=== PATIENT | female | born 1965 | race Asian ===

== ENCOUNTER 2018-08-14 10:52 | Emergency (ER) | payer OTHER, MEDICAID, SELFPAY ==
[2018-08-14 11:04] VITALS: BP 138/65; PULSE 55; RESP 14; TEMP 36.4; O2SAT 100; BMI 26.6
[2018-08-14] MEDS: METOCLOPRAMIDE 10 MG/2 ML INJ 5 MG IV (12:47)
[2018-08-14] MEDS: diphenhydrAMINE 50 MG/ML VIAL 25 MG IV (12:49)
[2018-08-14] MEDS: SODIUM CHLORIDE 0.9% 1,000 ML 1000 ML IV (12:49)
[2018-08-14] MEDS: KETOROLAC 60 MG/2 ML VIAL 30 MG IV (12:52)
[2018-08-14 12:55] VITALS: BP 143/68; PULSE 58; RESP 17; O2SAT 100
[2018-08-14 14:15] VITALS: BP 127/63; PULSE 60; RESP 18; O2SAT 99
--- NOTE | 2018-08-14 15:38 | ED_ITS ---
HPI - Nausea/Vomiting/Diarrhea <MADAY Hines - Last Filed: 08/14/18 15:38> General Chief complaint: Nausea/Vomiting/Diarrhea Stated complaint: Throwing up,headache Time Seen by Provider: 08/14/18 12:01 Source: patient and family Mode of arrival: ambulatory Limitations: no limitations History of Present Illness HPI Narrative: The patient is a 53-year-old female nonsmoker who presents with a chief complaint of a headache since yesterday. She states that she had recent cataract surgery, and was seen by her on-call surgeon this morning at [facility] in [place]. They state that her eye was okay, but did not help her headache. They have called in a prescription for steroids for her eye, but the patient has not picked them up. She states that her headache started last night, so bad at times that she is nauseous. Denies any vomiting or fever. No visual changes weakness incontinence or neurological changes. She has not taken anything for the headache. She states she has not taken Tylenol or Motrin. She denies any confusion. is with her and is in accordance. She had no thunderclap sensation. Related Data Allergies Allergy/AdvReac Type Severity Reaction Status Date / Time No Known Drug Allergies Allergy Verified 08/14/18 12:44 Review of Systems <MADAY Hines - Last Filed: 08/14/18 15:38> Review of Systems GENERAL: Denies chills, fatigue, malaise, fever, sweats. HEENT: See HPI RESPIRATORY: Denies dyspnea, cough, wheezing, hemoptysis, sputum. CARDIOVASCULAR: Denies chest pain, palpitations, orthopnea, edema, GASTROINTESTINAL: Denies nausea, vomiting, abdominal pain, diarrhea, constipation, melena. : Denies dysuria, frequency, incontinence, hematuria, urinary retention. MUSCULOSKELETAL: denies weakness, joint pain, or bony pain SKIN: Denies rash, skin lesions, or other NEUROLOGIC: See HPI PSYCHIATRIC: No concerning psychosocial issues. 12 point review of systems is negative except for those stated above PFSH <MADAY Hines - Last Filed: 08/14/18 15:38> Surgical History (Updated 08/14/18 @ 15:36 by MADAY Hines) History of cataract surgery (Acute) Social History Smoking Status: Never smoker Social History Smoking Status: Never smoker Exam <MADAY Hines - Last Filed: 08/14/18 15:38> Narrative Exam Narrative: GENERAL: This is a well-nourished, well-developed patient, no acute distress HEAD: Atraumatic. Normocephalic. No temporal or scalp tenderness. EYES: Pupils equal round and reactive. Extraocular motions intact. No scleral icterus. No injection or drainage. ENT: Nose without bleeding, purulent drainage or septal hematoma. Throat without erythema, tonsillar hypertrophy or exudate. Uvula midline. Airway patent. NECK: Trachea midline. No JVD or lymphadenopathy. Supple, nontender, no meningeal signs. CARDIOVASCULAR: Regular rate and rhythm without murmurs, gallops, or rubs. RESPIRATORY: Clear to auscultation. Breath sounds equal bilaterally. No wheezes, rales, or rhonchi. GASTROINTESTINAL: Abdomen soft, non-tender, nondistended. No hepato- splenomegaly, or palpable masses. No guarding. EXTREMITIES: No clubbing, cyanosis, or edema. No joint tenderness, effusion, or edema noted. BACK: Nontender without deformity or crepitance. No flank tenderness. NEURO: AOx3. Strength is equal upper and lower extremities bilaterally. Alvarez heel test intact. Using all extremities. No gross cranial nerve deficit. SKIN: No rash or erythema. Initial Vital Signs Initial Vital Signs: Vital Signs Temperature 97.6 F 08/14/18 11:04 Pulse Rate 55 L 08/14/18 11:04 Respiratory Rate 14 08/14/18 11:04 Blood Pressure 138/65 08/14/18 11:04 Pulse Oximetry 100 08/14/18 11:04 <Shanta Arellano DO - Last Filed: 08/14/18 19:05> Initial Vital Signs Initial Vital Signs: Vital Signs Temperature 97.6 F 08/14/18 11:04 Pulse Rate 55 L 08/14/18 11:04 Respiratory Rate 14 08/14/18 11:04 Blood Pressure 138/65 08/14/18 11:04 Pulse Oximetry 100 08/14/18 11:04 Course <Shanta Roth, INFORMATION TECHNOLOGY SECURITY ANALYST-BC - Last Filed: 08/14/18 15:38> Orders Ordered: Discontinued Medications Diphenhydramine HCl (Benadryl) 25 mg IV NOW ONE Stop: 08/14/18 12:14 Last Admin: 08/14/18 12:49 Dose: 25 mg Sodium Chloride (Normal Saline 0.9%) 1,000 mls @ 1,000 mls/hr IV BOLUS ONE Stop: 08/14/18 13:12 Last Infusion: 08/14/18 14:16 Dose: 0 mls/hr Admin: 08/14/18 12:49 Dose: 1,000 mls/hr Ketorolac Tromethamine (Toradol) 30 mg IV NOW ONE Stop: 08/14/18 12:14 Last Admin: 08/14/18 12:52 Dose: 30 mg Metoclopramide HCl (Reglan) 5 mg IV NOW ONE Stop: 08/14/18 12:14 Last Admin: 08/14/18 12:47 Dose: 5 mg Vital Signs - 8 hr 08/14/18 12:55 08/14/18 14:15 Pulse Rate 58 L 60 Respiratory Rate 17 18 Blood Pressure [Right Arm] 143/68 H 127/63 Pulse Oximetry 100 99 <Shanta Arellano DO - Last Filed: 08/14/18 19:05> Orders Ordered: Discontinued Medications Diphenhydramine HCl (Benadryl) 25 mg IV NOW ONE Stop: 08/14/18 12:14 Last Admin: 08/14/18 12:49 Dose: 25 mg Sodium Chloride (Normal Saline 0.9%) 1,000 mls @ 1,000 mls/hr IV BOLUS ONE Stop: 08/14/18 13:12 Last Infusion: 08/14/18 14:16 Dose: 0 mls/hr Admin: 08/14/18 12:49 Dose: 1,000 mls/hr Ketorolac Tromethamine (Toradol) 30 mg IV NOW ONE Stop: 08/14/18 12:14 Last Admin: 08/14/18 12:52 Dose: 30 mg Metoclopramide HCl (Reglan) 5 mg IV NOW ONE Stop: 08/14/18 12:14 Last Admin: 08/14/18 12:47 Dose: 5 mg Vital Signs - 8 hr 08/14/18 12:55 08/14/18 14:15 Pulse Rate 58 L 60 Respiratory Rate 17 18 Blood Pressure [Right Arm] 143/68 H 127/63 Pulse Oximetry 100 99 MDM - Nausea/Vomiting/Diarrhea <NATALIE Hines-BC - Last Filed: 08/14/18 15:38> Lab Data Point of Care Testing Test Results Negative Urine Dip Bedside Urine Glucose Negative Bedside Urine Bilirubin - Negative Bedside Urine Ketone - Negative Urine Specific George 1.015 Bedside Urine Occult Blood - Negative Bedside Urine pH 8.0 Bedside Urine Protein - Negative Bedside Urine Urobilinogen - Negative Bedside Urine Nitrite - Negative Bedside Urine Leukocytes - Negative Esterase MDM Narrative Medical decision making narrative: The patient is a 53-year-old female who presents with a headache. She was seen by her eye surgeon this morning, who states that there are no complications regarding her eye surgery. She has not taken anything for the headache, so we initially treated with IV fluids and a headache cocktail. She felt much relief after this, stated she was hungry and wanted to leave. She complained of nausea initially, but denied any vomiting or abdominal pain. She felt full relief of her headache symptoms. I encouraged [id number] medications rest and hydration. Discussed following up with her PCP as well as her surgeon. Encourage patient to come back to the ER for any acute concerns such as concern of heart attack or stroke. Patient has no questions or concerns and ambulates steadily out of the department. <Shanta Arellano DO - Last Filed: 08/14/18 19:05> Lab Data Point of Care Testing Test Results Negative Urine Dip Bedside Urine Glucose Negative Bedside Urine Bilirubin - Negative Bedside Urine Ketone - Negative Urine Specific George 1.015 Bedside Urine Occult Blood - Negative Bedside Urine pH 8.0 Bedside Urine Protein - Negative Bedside Urine Urobilinogen - Negative Bedside Urine Nitrite - Negative Bedside Urine Leukocytes - Negative Esterase Discharge Plan Departure Patient Disposition: Home Clinical Impression: Headache Qualifiers: Headache type: unspecified Headache chronicity pattern: acute headache Intractability: not intractable Qualified Code(s): R51 - Headache Discharge Date/Time: 08/14/18 14:21 Interventions: ED Discharge Assessment Last Done: 08/14/18 14:21 Instructions: DI for Headache Activity Restrictions/Additional Instructions: Please follow up with your eye surgeons recommendations and follow up with your eye surgeon. Please do not take ibuprofen Aleve or other NSAIDs for the next 6-8 hours. Please rest and push fluids. Please follow up with primary care provider. <Shanta Arellano DO - Last Filed: 08/14/18 19:05> Cosign ED Attending Cosignature Attestation: I was immediately available in the department for consultation. This documentation has been reviewed and I agree with assessment and plan. Supervised by Shanta Arellano DO
== END 2018-08-14 14:21 | disposition home or self-care (01) ==
PROVIDERS: Emergency Provider Nurse Practitioner Family
DX: R51 Headache (principal)
CPT/HCPCS: 81003; 81025; 96361; 96374; 96375; 99283; 99284; J1200; J1885; J2765